=== PATIENT | female | born 1955 | race Caucasian/White ===

== ENCOUNTER 2020-06-21 19:27 | Inpatient (IN) | payer MEDICARE, BC ==
[2020-06-21] MEDS: Acetaminophen 325 MG Tab ONE (20:10)
[2020-06-21] MEDS: Dexamethasone 10 MG/ML SDV PO ONE (21:15)
[2020-06-21] MEDS: Ondansetron 4 MG Tab.DIS ONE (21:30)
--- NOTE | 2020-06-21 21:50 | ER ---
HISTORY OF PRESENT ILLNESS: A 64-year-old lady who comes in with her sister. She tested positive for COVID last Friday. She has been staying at home and she tells me she was not very sick until the last 2 days. Now, she is developing some cough and shortness of breath symptoms. They have been checking her O2 sats at home and they are beginning in the mid 80s to low 90s. The patient states she does not feel well and she has been running a fever. OBJECTIVE: GENERAL APPEARANCE: The patient is awake and alert. She is lying on the exam table. She looks tired. She has a fairly persistent dry cough. She states that her chest does burn a little when she coughs and sometimes, she goes into a fit of coughing. VITAL SIGNS: Initially show her O2 sats are 94% on room air, temp 102.1, blood pressure 122/93, pulse 95. LUNGS: Appear clear, although she is not moving a lot of air. She has moderate reduction of air exchange throughout the lung martinez. I do not hear any rales, wheezes, or rhonchi. CARDIAC: Heart sounds distinct without murmurs. SKIN: Warm and dry. The patient was also brought directly to our negative pressure room avoiding the emergency room for initial evaluation. PAST MEDICAL HISTORY: She states she has been healthy. MEDICATIONS: She is not on any current medications for anything else. DIAGNOSIS: Coronavirus disease positive, developing mild to moderate respiratory distress. TREATMENT PLAN: My initial thoughts were to consult with infection control and they stated the patient should be transferred to a COVID unit if possible. I called [facility]. They informed me they were not accepting any new patients. I then called [facility] and talked with Dr. Akhtar, who informed me that in her current state she could stay here and be reasonably well treated. Since her O2 sats are above 90% on room air, he suggested that she be started on Decadron 6 mg a day and remdesivir 200 mg daily and monitor her very closely. If her condition gets worse, then a transfer to [facility] would be reasonable and they would accept her. Chest x-ray was also obtained showing COVID-like changes in the lungs with opacities. Labs include a CBC showing a normal white count and neutrophils are slightly elevated. C- reactive protein is high at 67.7. Lactic acid is 1.7, which is normal. Liver enzymes reveal an AST that is slightly elevated at 48. I will also include the e-hospitalist program we have here in [place] to help monitor the patient overnight. CRS/MODL /[id number]
--- NOTE | 2020-06-21 21:56 | ADMIT ---
A 64-year-old lady who was basically a direct admit tonight. She tested positive for COVID last Friday and over the last 2 days, she has been developing respiratory symptoms. Her sats upon arrival were 94%. She states that the nurse put her on oxygen shortly before checking her sats. At home, they were getting in the mid 80s to low 90s. Vital signs also reveal a temp of 102.1, pulse 95, blood pressure 122/93. On initial evaluation, the patient has reduced air exchange throughout the lung martinez. She has a dry persisting cough and just fatigue with fever. She will be given Tylenol here. I did try to make arrangements to have the patient transferred out and was declined by both [facility] and [facility]. [facility] stated, in her current condition with her oxygen saturation at 94% on room air, she should be able to be managed here and they would be happy to take her if her condition became worse. They suggested that she be started on Decadron and remdesivir which we will do and Tylenol for fever control. The patient will be monitored closely throughout the night, the e- hospitalist service will also be implemented with her. ANNA/SYLVIAL /[id number]
--- NOTE | 2020-06-21 23:52 | CR ---
DATE OF SERVICE: 06/11/2020 CLINICAL DATA: Cough - SOB. AP CHEST: No priors. The patient has taken a very poor inspiration. The heart size is within normal limits. There are patchy infiltrates in both lungs. Viral pneumonia should be considered. No pneumothorax. No pleural effusions. [id number] [facility]
[2020-06-22] MEDS: Dexamethasone 4 MG Tab ONE (01:08)
[2020-06-22] MEDS ORDERED: Ondansetron 4 MG Tab.DIS PO PRN (01:29)
[2020-06-22] MEDS ORDERED: Acetaminophen 325 MG Tab PO PRN (01:30)
[2020-06-22 05:47] VITALS: PULSE 69
[2020-06-22] MEDS ORDERED: Acetaminophen/Codeine 300-30 MG Tab PO STA (06:07)
[2020-06-22] MEDS: Codeine/guaiFENesin 10-100 MG/5 ML Syrup 5 ML Cup PO ONE (06:09)
[2020-06-22] MEDS: Acetaminophen/Codeine 300-30 MG Tab ONE (06:10)
[2020-06-22 06:11] VITALS: BP 130/61
--- NOTE | 2020-06-22 07:02 | PN ---
DATE OF VISIT: 06/21/2020 I did consult with the hospitalist, Dr. Jensen, and she informed me that we would not use antibiotics with this COVID patient. Her neutrophils are slightly elevated, but her white count was normal and the x-ray report shows opacities throughout the lungs, most consistent with COVID-19 pneumonia. The patient's O2 sats will be maintained at 93% to 94%. When she initially showed up at our facility, she was at 94%; when rechecked, she was out in the 91 to 92 range, so O2 at 2 L was started. Tylenol will be given p.r.n.. Zofran will be given p.r.n. The patient will be given Decadron 6 mg p.o. and remdesivir will be started as soon as it arrives. It is needed to be shipped into our facility. Lab results reveal a CRP of 67.7. Liver enzymes are just slightly elevated. AST is at 48. CRS/MODL /[id number]
[2020-06-22] MEDS: Enoxaparin 40 MG/0.4 ML Syringe SUBCUT ONE (07:14)
--- NOTE | 2020-06-22 10:41 | DISCH ---
She was admitted last evening as a direct admit bypassing the ER with positive COVID with mild respiratory distress. I did consult with [facility] in [place] last evening and they recommend that we monitor her as long as she does not need oxygen and her sats are not dropping, which was the case last evening. Over the course of the night, her respiratory status became worse, she drops down into the upper 70s O2 saturation level with any activity or with coughing. With oxygen on, she has been able to maintain a saturation rate in the low 90s at 4 L. At this point, I consulted once again with [facility] in [place], consulting with Dr. Carrillo, who accepted the patient for transfer due to her worsening condition. Per his direction, an EKG, troponin, and D-dimer will be drawn and she will be given Lovenox 40 mg subcu. Currently, she is saturating in the mid 90s on 6 L. We may turn this down slightly once again. Arrangements are currently being made for [facility]. She will be leaving our facility shortly. ANNA/VERNON /[id number]
[2020-06-23] MEDS ORDERED: Dexamethasone 10 MG/ML SDV PO SCH (08:00)
== END 2020-06-22 08:35 | DRG 177 ==
LOC: LB.ED 19:27 → LB.MS 20:30 → UNDOADMIN 21:45
PROVIDERS: ADMIT Physician Assistant; ATTEND Physician Assistant
DX: U07.1 COVID-19 (principal); J12.89 Other viral pneumonia; R06.03 Acute respiratory distress
CPT/HCPCS: 36415; 71045; 80053; 83605; 84484; 85025; 85379; 86140; 93005; 96372; 99222; 99238; 99284; 99285-25; A9270-GY; J1100; J1650